=== PATIENT | female | born 2005 | race Caucasian/White ===

== ENCOUNTER 2024-07-31 22:50 | Emergency (ER) | payer MEDICAID, SELFPAY ==
[2024-07-31 23:00] VITALS: BP 111/77; PULSE 105; RESP 20; TEMP 37.2; O2SAT 98; BMI 23.4
--- NOTE | 2024-08-01 00:03 | ED_ITS ---
HPI - General Adult General Time Seen by Provider: 00:03 Date Seen: 08/01/24 Chief complaint: Unspecified Complaint, Adult Stated complaint: mast cell attack Time Seen by Provider: 08/01/24 00:03 Source: patient, RN notes reviewed and old records reviewed Limitations: no limitations History of Present Illness HPI narrative: 19-year-old female who presents today with nausea and shakiness. Patient reports this feels like a ?mast cell attack. ? Took Margo and Benadryl at home. Reports symptoms started after alcohol use. Reports nausea, diarrhea, shakiness. Denies tongue or lip swelling, breathing difficulty. Related Data Home Medications ?Medication ?Instructions ?Recorded ?Confirmed escitalopram oxalate .ROUTE 07/31/24 fexofenadine .ROUTE 07/31/24 Allergies Allergy/AdvReac Type Severity Reaction Status Date / Time No Known Drug Allergies Allergy Verified 07/31/24 23:02 [facility] PFS Social History Smoking Status: Never smoker Do you use any of these nicotine containing products: None How often do you have a drink containing alcohol: monthly or less AUDIT-C Alcohol total score: 1 Non-prescribed substance use: denies use Exam Narrative: Exam Narrative: General: Well-developed and well-nourished, no acute distress Head: Atraumatic and normocephalic Eyes: Pupils are equal reactive, extraocular motions intact, conjunctiva clear ENT: External nose and ears are normal, posterior pharynx without erythema or exudate, dry mucous membranes Neck: No midline cervical tenderness, full spontaneous range of motion the neck, trachea midline, no adenopathy Heart: Tachycardic Lungs: Clear to auscultation bilaterally without wheezes or crackles Abdomen: Soft, nontender, nondistended with active bowel sounds Musculoskeletal: No tenderness, deformity, or edema Neurologic: Awake, alert, and oriented x3, no gross focal neurologic deficits, cranial nerves intact as tested Psych: Mood and affect are appropriate Skin: No rashes Const: Vital Signs, click to edit/add: Vital Signs - 24 hr 07/31/24 23:00 08/01/24 00:15 08/01/24 00:27 Temperature 99.0 F 99.0 F Pulse Rate [Pulse Oximeter] 105 H 91 Respiratory Rate 20 20 Blood Pressure [Ri ght Upper Arm] 111/77 108/71 Pulse Oximetry 98 98 98 Oxygen Delivery Me thod Room Air Room Air Course Course ED Course: Patient seen examined, reports nausea and shakiness after drinking alcohol tonight, 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 Took antihistamines at home. On exam here, borderline tachycardia dry mucous membranes, patient is little bit somnolent. Will be given Zofran, Pepcid, Decadron and monitor in the emergency department, encourage fluid intake. Reevaluation(s) Time of Reevaluation #1: 00:57 Reevaluation #1: Labs independently interpreted by me with normal basic metabolic panel. Patient is feeling better and stable for discharge Vital Signs Vital signs: Initial Vital Signs Temperature 99.0 F 07/31/24 23:00 Temperature Source Temporal Artery Scan 07/31/24 23:00 Pulse Rate 105 H 07/31/24 23:00 Respiratory Rate 20 07/31/24 23:00 Blood Pressure 111/77 07/31/24 23:00 Blood Pressure Mean 88 07/31/24 23:00 Blood Pressure Position Sitting 07/31/24 23:00 Pulse Oximetry 98 07/31/24 23:00 Oxygen Delivery Method Room Air 07/31/24 23:00 Vital Signs Temperature 99.0 F 07/31/24 23:00 Pulse Rate 105 H 07/31/24 23:00 Respiratory Rate 20 07/31/24 23:00 Blood Pressure 111/77 07/31/24 23:00 Pulse Oximetry 98 07/31/24 23:00 Oxygen Delivery Method Room Air 07/31/24 23:00 Temperature 99.0 F 08/01/24 00:27 Pulse Rate 91 08/01/24 00:27 Respiratory Rate 20 08/01/24 00:27 Blood Pressure 108/71 08/01/24 00:27 Pulse Oximetry 98 08/01/24 00:27 Oxygen Delivery Method Room Air 08/01/24 00:27 Medications Administered Medications: Discontinued Medications Generic Name Dose Route Start Last Admin Trade Name Freq PRN Reason Stop Dose Admin Dexamethasone 10 mg 08/01/24 00:11 08/01/24 00:16 Dexamethasone 10 Mg/Ml Inj IVP 08/01/24 00:12 10 mg ONCE ONE Administration Famotidine 20 mg 08/01/24 00:11 08/01/24 00:16 Famotidine 10 Mg/Ml Inj IVP 08/01/24 00:12 20 mg ONCE ONE Administration Ondansetron HCl 4 mg 08/01/24 00:11 08/01/24 00:16 Ondansetron 2 Mg/Ml Inj IVP 08/01/24 00:12 4 mg ONCE ONE Administration Medical Decision Making Lab Data Labs: Lab Results 08/01/24 Range/Units 00:14 Sodium 139 (135-149) mmol/L Potassium 3.7 (3.6-5.1) mmol/L Chloride 107 (96-114) mmol/L Carbon Dioxide 24 (20-32) mmol/L Anion Gap 8 (7-15) mEq/L BUN 11 (5-24) mg/dL Creatinine 0.9 (0.5-1.5) mg/dL Estimated Creat Clear 92.56 Estimated GFR 93 ml/min Glucose 130 H (60-115) mg/dL Calcium 9.2 (8.4-10.6) mg/dL Ethyl Alcohol < 0.01 L (0.01-0.03) % Discharge Plan Discharge Clinical Impression: Nausea, Lightheadedness, Idiopathic mast cell activation syndrome Additional Instructions: Continue antihistamines at home as needed Take Zofran as needed for nausea vomiting Make sure your getting plenty of fluids in the next 24 hours Activity Level: Activity as Tolerated Discharge Diet: Regular Prescriptions: No Action fexofenadine [Margo Allergy] .ROUTE escitalopram oxalate [Lexapro] .ROUTE Stand Alone Forms: [employer] Info Instructions
[2024-08-01 00:15] VITALS: O2SAT 98
[2024-08-01] MEDS: dexAMETHasone 10 MG/ML inj IVP (00:16)
[2024-08-01] MEDS: FAMOTIDINE 10 MG/ML inj 20 MG IVP (00:16)
[2024-08-01] MEDS: ONDANSETRON 2 MG/ML inj 4 MG IVP (00:16)
[2024-08-01 00:27] VITALS: BP 108/71; PULSE 91; RESP 20; TEMP 37.2; O2SAT 98
[2024-08-01 00:41] LABS: Chloride* 107 mmol/L (96-114); Potassium* 3.7 mmol/L (3.6-5.1); Sodium* 139 mmol/L (135-149)
[2024-08-01 00:43] LABS: Creatinine* 0.9 mg/dL (0.5-1.5); Est. Creatinine Clearance* 92.56; Estimated Glomerular Filt Rate 93 ml/min
[2024-08-01 00:44] LABS: Anion Gap 8 mEq/L (7-15); Blood Urea Nitrogen* 11 mg/dL (5-24); Calcium* 9.2 mg/dL (8.4-10.6); Carbon Dioxide* 24 mmol/L (20-32)
[2024-08-01 00:52] LABS: Ethanol* < 0.01 % (0.01-0.03)
[2024-08-01 00:54] LABS: Glucose* 130 mg/dL (60-115)
[2024-08-01 01:06] VITALS: BP 108/71; PULSE 91; RESP 20; TEMP 37.2
== END 2024-08-01 01:06 | disposition home or self-care (01) ==
LOC: ED 08-01 00:25
PROVIDERS: Emergency Provider Family Medicine
DX: D89.42 Idiopathic mast cell activation syndrome (principal); R42 Dizziness and giddiness; R11.0 Nausea; R19.7 Diarrhea, unspecified; F10.90 Alcohol use, unspecified, uncomplicated; Y90.0 Blood alcohol level of less than 20 mg/100 ml
CPT/HCPCS: 36415; 80048; 82077; 94761; 96374; 96375; 99284; J1100; J2405; S0028